=== PATIENT | female | born 1965 | race Caucasian/White ===

== ENCOUNTER 2018-01-18 15:09 | Emergency (ER) | payer SELFPAY ==
[~2018-01-18] VITALS: Ht 170.2 cm; Wt 90.7 kg
[2018-01-18] MEDS ORDERED: Augmentin 875-1 EACH PO (15:52)
== END 2018-01-18 16:05 | disposition home or self-care (01) ==
LOC: ER 15:09
DX: J32.9 Chronic sinusitis, unspecified (principal); F17.200 Nicotine dependence, unspecified, uncomplicated
CPT/HCPCS: 99282